=== PATIENT | male | born 1950 | race Caucasian/White ===

== ENCOUNTER 2019-12-04 16:10 | Inpatient (IN) ==
[2019-12-04] MEDS ORDERED: Naloxone 0.4 MG/ML INJ IVP PRN (20:02)
[2019-12-04] MEDS ORDERED: 0.9 % Sodium Chloride 1,000 ML ONE (20:03)
[2019-12-04] MEDS ORDERED: *HR* Belladonna Alkaloids/Opium 30 MG RECTAL SUPPOSITORY RC PRN (20:26)
[2019-12-04] MEDS: Famotidine 20 MG TABLET PO SCH (22:13)
[2019-12-05 02:03] LABS: Eosinophils % 0.6 %; Hematocrit 35.6 % (37.5-50.1); Hemoglobin 10.9 g/dL (12.9-16.9); Mean Corpuscular HGB Conc 30.6 g/dL (31.6-35.5); Mean Corpuscular Hemoglobin 25.4 pg (28.0-33.3); Red Blood Count 4.29 M/mcL (4.19-5.50); Red Cell Distribution Width 13.2 % (11.5-14.5)
[2019-12-05 02:06] LABS: Basophils % 0.4 %; Eosinophils # 0.1 K/mcL (0.0-0.6); Immature Granulocytes % 0.3 % (0-4); Immature Platelets 3.4 % (1.1-6.1); Lymphocytes # 1.6 K/mcL (0.6-4.6); Lymphocytes % 15.8 %; Monocytes # 0.7 K/mcL (0.0-1.3); Monocytes % 7.1 %; Neutrophils # 7.9 K/mcL (1.6-8.9); Platelet Count 262 K/mcL (140-400); Segmented Neutrophils % 75.8 %; White Blood Count 10.4 K/mcL (4.3-11.1)
[2019-12-05 02:18] LABS: BUN/Creatinine Ratio 17 (6-26); Blood Urea Nitrogen 17 mg/dL (8-23); Carbon Dioxide 21 mEq/L (23-29); Chloride 109 mEq/L (98-107); Glucose 122 mg/dL (70-105); Osmolality,Calculated 289 (280-300); Sodium 138 mEq/L (136-145); eGFR For African Americans > 60 (> 60); eGFR For Non-African Americans > 60 (> 60)
[2019-12-05] MEDS ORDERED: DHA PO SCH (09:00)
[2019-12-05] MEDS ORDERED: Aspirin Enteric Coated 81 MG Tablet PO SCH (09:00)
[2019-12-05] MEDS ORDERED: OMEGA PO SCH (09:00)
[2019-12-05] MEDS ORDERED: EPA PO SCH (09:00)
[2019-12-05] MEDS ORDERED: FISH OIL PO SCH (09:00)
[2019-12-05] MEDS: Finasteride 5 MG TABLET PO SCH (10:49)
[2019-12-05] MEDS: amLODIPine 5 MG TABLET PO SCH (10:49)
[2019-12-05] MEDS: Metoprolol XL (24 HR) Succ 50 MG TAB.ER.24H PO SCH (10:50)
[2019-12-05] MEDS: lisinopriL 20 MG TABLET PO SCH (10:50)
[2019-12-05] MEDS: cefTRIAXone 1,000 MG in Water for inj. (sterile) 10 ML IVP SCH (10:50)
[2019-12-05] MEDS: Famotidine 20 MG TABLET PO SCH ×2 (10:50→20:03)
[2019-12-05] MEDS: Ringers Solution, Lactated 1,000 ML IVC SCH ×2 (10:51→20:02)
[2019-12-05] MEDS ORDERED: Acetaminophen 325 MG TABLET PO PRN (14:09)
[2019-12-05] MEDS ORDERED: Lidocaine Jelly 6ml 1 APPL/6 ML JEL.PF.APP TP ONE (15:13)
[2019-12-06 04:32] LABS: Hemoglobin 9.6 g/dL (12.9-16.9); Mean Corpuscular Hemoglobin 25.1 pg (28.0-33.3); Mean Corpuscular Volume 80.9 fL (83.0-100.0); Mean Platelet Volume 10.6 fL (9.4-12.4); Platelet Count 228 K/mcL (140-400); Red Blood Count 3.83 M/mcL (4.19-5.50); Red Cell Distribution Width 13.1 % (11.5-14.5); White Blood Count 8.5 K/mcL (4.3-11.1)
[2019-12-06 04:53] LABS: BUN/Creatinine Ratio 15 (6-26); Blood Urea Nitrogen 17 mg/dL (8-23); Calcium 8.2 mg/dL (8.6-10.3); Carbon Dioxide 22 mEq/L (23-29); Chloride 109 mEq/L (98-107); Glucose 123 mg/dL (70-105); Osmolality,Calculated 289 (280-300); Potassium 3.8 mEq/L (3.5-5.1); Sodium 138 mEq/L (136-145); eGFR For African Americans > 60 (> 60); eGFR For Non-African Americans > 60 (> 60)
[2019-12-06] MEDS: Ringers Solution, Lactated 1,000 ML IVC SCH (06:03)
[2019-12-06] MEDS: Famotidine 20 MG TABLET PO SCH (10:09)
[2019-12-06] MEDS: Metoprolol XL (24 HR) Succ 50 MG TAB.ER.24H PO SCH (10:09)
[2019-12-06] MEDS: lisinopriL 20 MG TABLET PO SCH (10:09)
[2019-12-06] MEDS: amLODIPine 5 MG TABLET PO SCH (10:09)
[2019-12-06] MEDS: cefTRIAXone 1,000 MG in Water for inj. (sterile) 10 ML IVP SCH (10:10)
[2019-12-06] MEDS: Finasteride 5 MG TABLET PO SCH (10:11)
[2019-12-06 10:38] VITALS: BP 127/82
== END 2019-12-06 14:17 | disposition home or self-care (01) | DRG 696 ==
LOC: 2ANU → SUATTDRO 18:24
PROVIDERS: ADMIT Internal Medicine; ATTEND Internal Medicine